=== PATIENT | female | born 1990 | race Two or more races ===

== ENCOUNTER → 2019-06-30 | Outpatient (CLI) | payer SELFPAY ==
--- NOTE | 2019-06-30 13:00 | RADIOLOGY REPORT (SQ) ---
EXAM DESCRIPTION: U/S [id number] TRNABD 1GES W/ODOP IMAGES COMPLETED DATE/TIME: 06/30/2019 11:26 am REASON FOR STUDY: ENCOUNTER FOR SUPRVSN OF NORMAL , FIRST TRIMESTER Z34.81 ENCOUNTER FOR S UPRVSN OF NORMAL , FIRST TRIM COMPARISON: None. TECHNIQUE: Transabdominal static and realtime grayscale images acquired of the pelvis. Additional se lected spectral and color Doppler images recorded. All images stored on PACs. bHCG: Unknown. CLINICAL DATES: Unknown. LIMITATIONS: None. FINDINGS: FETUS: Single Living intrauterine . ULTRASOUND EGA: 10 weeks 5 days. ULTRASOUND FAINA: 01/21/2020. CRL: 3.9 cm. FHR: 165 beats per minute. SURVEY: Too early to assess. AMNIOTIC FLUID: Too early to assess PLACENTA: Too early to assess. SUBCHORIONIC BLEED: Yes. SIZE OF BLEED: 1.8 x 1.3 x 1.3 cm. UTERUS: The uterus measures 11.1 x 7.9 x 7.2 cm. CERVICAL LENGTH: 2.2 cm. Closed. RIGHT ADNEXA: The right ovary measures 3 x 2.6 x 1.6 cm and on Doppler there is intact color flow wit hin the ovarian stroma. There is no adnexal mass. LEFT ADNEXA: The left ovary measures 3.1 x 2 x 2 cm and on Doppler there is intact color flow within the ovarian stroma. There is no adnexal mass. FREE FLUID: None. OTHER: No other finding. IMPRESSION: LIVE INTRAUTERINE . EGA 10 weeks 5 days based on ultrasound (LMP is unknown). SUBCHORIONIC HEMORRHAGE THAT MEASURES 1.8 X 1.3 X 1.3 CM. Trimester of : First trimester - 0 to 13 weeks. TECHNICAL DOCUMENTATION: JOB ID: [id number] 2010 [employer]- All Rights Reserved rev Reading location - IP/workstation name: [email or web address]
== END ==
LOC: RAD 10:50
PROVIDERS: ATTEND Midwife
DX: Z34.81 Encounter for supervision of other normal pregnancy, first trimester (principal); Z3A.10 10 weeks gestation of pregnancy
CPT/HCPCS: 76801

== ENCOUNTER → 2019-09-04 | Outpatient (CLI) | payer SELFPAY ==
--- NOTE | 2019-09-04 14:55 | RADIOLOGY REPORT (SQ) ---
EXAM DESCRIPTION: U/S OB 14+ TRNABD 1GES W/O DOP IMAGES COMPLETED DATE/TIME: 09/04/2019 2:32 pm REASON FOR STUDY: Z34.82 ENCOUNTER FOR SUPRVSN OF NORMAL , SECOND TRIMESTER Z34.82 ENCOUNT ER FOR SUPRVSN OF NORMAL , SECOND TRI COMPARISON: 06/30/2019 TECHNIQUE: Static and Dynamic grayscale imaging performed of gravid uterus using transabdominal appr oach. Additional selected color Doppler and spectral images recorded. All stored on PACS. LIMITATIONS: None. FINDINGS: FETUSES SEEN:1 EGA: 20 weeks 2 days Calculated using BPD,FL,HC,AC documented on images. No significant discrepancy with clinical dates. FAINA: 01/20/2020 EFW: 334+/- 49 grams PERCENTILE: Not calculated LVP: 4.4 x 4.6 cm PLACENTA: Posterior grade 1 PRESENTATION: Breech ANATOMY: HEART RATE: 155 beats per minute. FOUR CHAMBER HEART: Visualized. THREE VESSEL CORD: Yes. CORD INSERTION: Visualized. KIDNEYS AND BLADDER: Visualized. Appear normal. STOMACH: Visualized. Appears normal. SPINE: Normal as visualized. BRAIN AND LATERAL VENTRICLES: Visualized. Appear normal. OTHER: No other significant finding. MATERNAL ADNEXA: Maternal ovaries not visualized. CERVICAL LENGTH: 3.1 cm. Closed. OTHER: No other significant finding. IMPRESSION: LIVING INTRAUTERINE . ESTIMATED GESTATIONAL AGE 20 weeks 2 days NO VISUALIZED ANOMALIES. Trimester of : Second trimester - 13 weeks 1 day to 27 weeks 6 days. TECHNICAL DOCUMENTATION: JOB ID: [id number] 2010 [employer]- All Rights Reserved Reading location - IP/workstation name: [email or web address]
== END ==
LOC: RAD 13:52
PROVIDERS: ATTEND Nurse Practitioner Family
DX: Z34.82 Encounter for supervision of other normal pregnancy, second trimester (principal); Z3A.20 20 weeks gestation of pregnancy
CPT/HCPCS: 76805

== ENCOUNTER 2019-12-28 04:35 | Inpatient (IN) | payer SELFPAY ==
[2019-12-28] MEDS ORDERED: RINGERS SOLUTION,LACTATED 1,000 ML IV ONE (04:48)
[2019-12-28] MEDS ORDERED: RINGERS SOLUTION,LACTATED 1,000 ML IV PRN (04:48)
[2019-12-28] MEDS ORDERED: OXYTOCIN 10 UNIT/ML VIAL ONE (04:52)
[2019-12-28] MEDS ORDERED: LIDOCAINE 1% INJ-PF (10 MG/ML) 30 ML SDV ONE (04:52)
[2019-12-28] MEDS ORDERED: OXYTOCIN/0.9 % SODIUM CHLORIDE 30 UNIT/500 ML RTUINJ ONE (04:52)
[2019-12-28] MEDS ORDERED: PENICILLIN G-K 5 MILLION UNIT VIAL ONE (04:52)
[2019-12-28] MEDS ORDERED: MISOPROSTOL 0.2 MG TABLET ONE (04:52)
[2019-12-28] MEDS ORDERED: PENICILLIN G POTASSIUM 5,000,000 UNIT in DEXTROSE 5%-WATER 100 ML IV ONE (05:00)
[2019-12-28] MEDS ORDERED: HYDRALAZINE HCL INJ/PF 20 MG/1 ML SDV IV ONE (05:26)
[2019-12-28 05:28] LABS: ABSOLUTE EOSINOPHILS # (AUTO) 0.1 10^3/uL (0.0-0.6); ABSOLUTE LYMPHOCYTES (AUTO) 1.7 10^3/uL (0.5-4.7); ABSOLUTE MONOCYTES (AUTO) 0.5 10^3/uL (0.1-1.4); ABSOLUTE NEUT (AUTO) 10.9 10^3/uL (1.7-8.2); BASOPHILS % (AUTO) 0.1 % (0-2); EOSINOPHILS % (AUTO) 0.4 % (0-6); HEMATOCRIT 37.9 % (36.0-47.0); HEMOGLOBIN 12.8 g/dL (12.0-15.5); LYMPHOCYTES % (AUTO) 12.9 % (13-45); MEAN CORPUSCULAR HEMOGLOBIN 31.6 pg (27.0-33.4); MEAN CORPUSCULAR HGB CONC 33.7 g/dL (32.0-36.0); MEAN CORPUSCULAR VOLUME 94 fl (80-97); MONOCYTES % (AUTO) 4.1 % (3-13); PLATELET COUNT 233 10^3/uL (150-450); RED BLOOD COUNT 4.04 10^6/uL (3.72-5.28); RED CELL DISTRIBUTION WIDTH 13.2 % (11.5-14.0); SEGMENTED NEUTROPHILS % (AUTO) 82.5 % (42-78); TOTAL CELLS COUNTED % (AUTO) 100 %; WHITE BLOOD COUNT 13.2 10^3/uL (4.0-10.5)
--- NOTE | 2019-12-28 06:02 | Admission Physical ---
Datetime Report Generated by CPN: 12/28/2019 06:02 CURRENT ADMISSION Chief Complaint: Uterine Contractions Indication for Induction: Not Applicable Admit Impression : Term, Intrauterine Admit Plan: Admit to Unit ALLERGIES Medication Allergies: No Medication Allergies: No Known Allergies (12/28/2019) Latex: No Latex Allergies OBSTETRICAL HISTORY EDC: 01/21/2020 00:00 : 2 Para: 1 Term: 0 : 1 Livin Gestational Diabetes: No Rh Sensitization: No Incompetent Cervix: No JOHN: No Infertility: No ART Treatment: No Uterine Anomaly: No IUGR: No Hx Previous C/S: No Macrosomia: No Hx Loss/Stillborn: No PIH: No Hx : No Placenta Previa/Abruption: No Depression/PP Depression: No PTL/PROM: No Post Hemorrhage: No Obstetrical History Comments: G1- boy G2- current SEE RECORDS Alcohol: No Marijuana : No Cocaine: No Other Illicit Drugs: No Cigarettes: Never Smoker. 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 Surgery: No Heart Disease: No Hosp/Surgery: No Autoimmune Disorder: No Anesthetic Complications: No Kidney Disease: No Abnormal Pap Smear: No Neuro/Epilepsy: No Psychiatric Disorders: No Other Medical Diseases: No Hepatitis/Liver Disease: No Significant Family History: No Varicosities/Phlebitis: No Trauma/Violence : No Thyroid Dysfunction: No INFECTIOUS HISTORY Gonorrhea: No Genital Herpes: No Chlamydia: No Tuberculosis: No Syphilis: No Hepatitis: No HIV/AIDS Exposure: No Rash or Viral Illness: No HPV: No PHYSICAL EXAM General: Normal HEENT: Normal Neurologic: Normal Thyroid: Normal Heart: Normal Lungs: Normal Breast: Deferred Back: Normal Abdomen: Normal Genitourinary Exam: Normal Extremities: Normal DTRs: Normal Pelvic Type: Adequate Vital Signs: Reviewed VAGINAL EXAM Dilatation: 8 Effacement: 100 Station: 0 MEMBRANES Pooling: Positive Membranes: Ruptured FETUS A EGA: 36.4 Monitoring: External US FHR- Baseline: 120 Variability: Moderate 6-25bpm Decelerations: None FHR Category: Category I Presentation: Vertex Admit Comment: efw 7 lbs PLANS FOR LABOR AND DELIVERY Labor and Delivery: None Pain Management: Natural Feeding Preference: Breast Benefit of Breast Feed Discussed: Yes Circumcision: No INFORMED CONSENT Signature: with User ID: [email or web address]
[2019-12-28] MEDS ORDERED: MEASLES,MUMPS&RUBELLA VACC/PF 0.5 ML VIAL SUBCUT PRN (06:24)
[2019-12-28] MEDS ORDERED: NA PHOS,M-B/NA PHOS,DI-BA (ADULT) 133 ML ENEMA PR PRN (06:24)
[2019-12-28] MEDS ORDERED: PROMETHAZINE HCL INJ 25 MG/1 ML VIAL IV PRN (06:24)
[2019-12-28] MEDS ORDERED: ZOLPIDEM TARTRATE 5 MG TABLET PO PRN (06:24)
[2019-12-28] MEDS ORDERED: PROMETHAZINE HCL 25 MG TABLET PO PRN (06:24)
[2019-12-28] MEDS ORDERED: ACETAMINOPHEN 650 MG SUPP.RECT PR PRN (06:24)
[2019-12-28] MEDS ORDERED: ACETAMINOPHEN WITH CODEINE #3 TABLET PO PRN ×2 (06:24)
[2019-12-28] MEDS ORDERED: OXYTOCIN/0.9 % SODIUM CHLORIDE 30 UNIT/500 ML RTUINJ IV PRN (06:24)
[2019-12-28] MEDS ORDERED: DIBUCAINE 1% OINTMENT 28 GM TP PRN (06:24)
[2019-12-28] MEDS ORDERED: DIPH/PERTUSS(ACELL)/TETANUS VAC/PF 0.5 ML SYR (>=10YO) IM PRN (06:24)
[2019-12-28] MEDS ORDERED: PSEUDOEPHEDRINE HCL 30 MG TABLET PO PRN (06:24)
[2019-12-28] MEDS ORDERED: MAGNESIUM HYDROXIDE SUSP 30 ML UDCUP PO PRN (06:24)
[2019-12-28] MEDS ORDERED: GLYCERIN/WITCH HAZEL LEAF 1 EACH MED..WIPE TP PRN (06:24)
[2019-12-28] MEDS ORDERED: DIPHENHYDRAMINE HCL 25 MG CAPSULE PO PRN (06:24)
[2019-12-28] MEDS ORDERED: BENZOCAINE/MENTHOL AEROSOL SPRAY 56 ML TOP PRN (06:24)
[2019-12-28] MEDS ORDERED: PROMETHAZINE HCL 25 MG SUPP.RECT PR PRN (06:24)
--- NOTE | 2019-12-28 06:26 | Warning Signs in Babies ---
VOD Warning Signs Datetime Report Generated by [facility]: 12/28/2019 06:26 VOD#608 -Warning Signs in Babies: Needs to be viewed. (12/28/2019 05:14:Charleen Almaraz RN)
[2019-12-28] MEDS ORDERED: IBUPROFEN 800 MG TABLET ONE (06:36)
--- NOTE | 2019-12-28 07:21 | Delivery Summary ---
Del Sum A-C Datetime Report Generated by CPN: 12/28/2019 07:21 DELIVERY PERSONNEL DELIVERY PERSONNEL: [id number] Delivery Doctor:: Taye Briggs MD Labor and Delivery Nurse:: Charleen Almaraz RN Labor and Delivery Nurse:: Veronica Mcduffie RN Afterschool Babysitter/ONCOLOGY COORDINATOR: Aide Green, ST MATERNAL INFORMATION Delivery Anesthesia: None Medications After Delivery: Pitocin 30 Units in 500ml NS/D5W Estimated Blood Loss (ml): 250 Maternal Complications: None LABOR SUMMARY EDC: 01/21/2020 00:00 No. Babies in Womb: 1 Attempted: No Labor Anesthesia: None LABOR INFORMATION Reason for Induction: Not Applicable Onset of Labor: 12/28/2019 00:00 Complete Dilatation: 12/28/2019 06:00 Oxytocin: N/A Group B Beta Strep: unknown Antibiotics # of Doses: 1 Antibiotics Time of Last Dose: 12/28/2019 05:08 Name of Antibiotic Given: PCN Steroids Given: None Reason Steroids Not Administered: Not Applicable MEMBRANES Membranes Rupture Method: Artificial Rupture of Membranes: 12/28/2019 05:56 Length of Rupture (hr): 0.17 Amniotic Fluid Color: Clear Amniotic Fluid Amount: Moderate Amniotic Fluid Odor: Normal STAGES OF LABOR Stage 1 hr: 6 Stage 1 min: 0 Stage 2 hr: 0 Stage 2 min: 6 Stage 3 hr: 0 Stage 3 min: 6 Total Time in Labor hr: 6 Total Time in Labor min: 12 VAGINAL DELIVERY Episiotomy: None Laceration #1: Vaginal Laceration Extension #1: First Degree Laceration #2: Vaginal Laceration Extension #2: First Degree Laceration #3: None Laceration Extension #3: N/A Laceration Repair: Yes Laceration Repair Note: Bilateral labial lacerations repaired with 3-0 chromic suture. Sponge Count Correct: Yes Sharps Count Correct: Yes CSECTION DELIVERY Primary Indication: N/A Secondary Indication: N/A CSection Incidence: N/A Labor: N/A Elective: N/A CSection Incision: N/A BABY A INFORMATION Delivery Date/Time: 12/28/2019 06:06 Method of Delivery: Vaginal Nurse Controlled Delivery: No Born in Route : No : N/A Forceps: N/A Vacuum Extraction: N/A Shoulder Dystocia : No PRESENTATION/POSITION BABY A Presentation: Cephalic Cephalic Presentation: Vertex Vertex Position: Left Occipital Anterior Breech Presentation: N/A PLACENTA INFORMATION BABY A Placenta Delivery Time : 12/28/2019 06:12 Placenta Method of Delivery: Spontaneous Placenta Status: Delivered SCORES BABY A Heart Rate 1 min: >100 bpm Resp Effort 1 min: Good Cry Reflex Irritability 1 min: Cough or Sneeze or Pulls Away Muscle Tone 1 min: Active Motion Color 1 min: Blue/Pale Resuscitation Effort 1 min: Tactile Stimulation SCORE 1 MIN: 8 Heart Rate 5 min: >100 bpm Resp Effort 5 min: Good Cry Reflex Irritability 5 min: Cough or Sneeze or Pulls Away Muscle Tone 5 min: Active Motion Color 5 min: Body [place], Extremities Blue Resuscitation Effort 5 min: Tactile Stimulation SCORE 5 MIN: 9 INFORMATION BABY A Gestational Age at Delivery: 36.4 Gestational Status: Late - 34- 36.6 Weeks Infant Outcome : Liveborn Infant Condition : Stable Infant Sex: Male IDENTIFICATION BABY A Verification Date/Time: 12/28/2019 06:25 ID Band Number: [id number] Mother's Name Verified: Yes RN Verifying Infant: C. Georgeilin, RN D. Bellavance, RN WEIGHT/LENGTH BABY A Infant Birthweight (gm): 3021 Infant Weight (lb): 6 Infant Weight (oz): 11 Infant Length (in): 20.00 Infant Length (cm): 50.80 CORD INFORMATION BABY A No. Cord Vessels: 3 Nuchal Cord : N/A Cord Blood Taken: Yes-For Storage (Mom's Blood type +) Suction: None ASSESSMENT BABY A Complications: None Physical Findings at Delivery: Within Normal Limits Skin to Skin: Yes Transferred To: Remains with Mother BABY B INFORMATION : N/A SIGNATURES Signature: Electronically signed by Taye Briggs MD ([facility]) on 12/28/2019 at 06:21 with User ID: [email or web address]
--- NOTE | 2019-12-28 07:21 | Birth Certificate Data ---
Cert Data Datetime Report Generated by CPN: 12/28/2019 07:21 CERTIFICATE DATA Delivery Provider: Taye Briggs MD (12/28/2019 05:14:Veronica Mcduffie RN) 47a. Care: Yes (12/28/2019 05:14:Veronica Mcduffie RN) 47b. Date of First Visit: 07/01/2019 00:00 (12/28/2019 05:14:JOSE Masters) 47c. Date of Last Visit: 11/19/2019 00:00 (12/28/2019 05:14:JOSE Masters) 47d. Number of Visits: 8 (12/28/2019 05:14:JOSE Masters) 48a. Number of Prev Live Births: 1 (12/28/2019 05:14:Veronica Mcduffie RN) 48b. Now Livin (12/28/2019 05:14:Veronica Mcduffie RN) 48c. Live Births Now : 0 (12/28/2019 05:14:QS system process) 48e. Losses: 0 (12/28/2019 05:14:Veronica Mcduffie RN) RISK FACTORS IN THIS 49a. Diabetes: No (12/28/2019 05:14:Charleen Almaraz RN) 49b. Hypertension: No (12/28/2019 05:14:Charleen Almaraz RN) 49c. Previous Births: 1 (12/28/2019 05:14:Veronica Mcduffie RN) 49d. Stillborns: No (12/28/2019 05:14:Charleen Almaraz RN) 49d. IUGR: No (12/28/2019 05:14:Charleen Almaraz RN) 49e. Infertility Treatment: No (12/28/2019 05:14:Charleen Almaraz RN) Mother's Height 50b. Height Inches: 67 (12/28/2019 05:26:QS system process) Mother's Weight 51a. Pre- Weight (lbs): 213 (12/28/2019 05:14:JOSE Masters) 51b. Weight at Delivery (lbs): 220 (12/28/2019 05:26:QS system process) Infections Present/Treated 53a. Gonorrhea: No (12/28/2019 05:14:Charleen Almaraz RN) Results this Hospital Visit : Negative (12/28/2019 05:14:Veronica Mcduffie RN) 53b. Syphilis: No (12/28/2019 05:14:Charleen Almaraz RN) 53c. Chlamydia: No (12/28/2019 05:14:Charleen Almaraz RN) Results this Hospital Visit: Negative (12/28/2019 05:14:Veronica Mcduffie RN) 53d. Hepatitis B: No (12/28/2019 05:14:Charleen Almaraz RN) Results this Hospital Visit: Negative (12/28/2019 05:14:Veronica Mcduffie RN) 53e. Hepatitis C: Negative (12/28/2019 05:14:Veronica Mcduffie RN) 53h. Mother Tested for HBsAG: Yes (12/28/2019 05:14:Veronica Mcduffie RN) 53i. Date Tested: 07/01/2019 00:00 (12/28/2019 05:14:Veronica Mcduffie RN) 53j. Test Result: Negative (12/28/2019 05:14:Veronica Mcduffie RN) Cigarette Smoking Cigarette Smoking: Never Smoker. [id number] (12/28/2019 05:14:Veronica Mcduffie RN) 55a. 3 Months Before Preg - Ci (12/28/2019 05:14:Veronica Mcduffie RN) 55a. Packs: 0 (12/28/2019 05:14:Veronica Mcduffie RN) 55b. 1st Trimester of Preg- Ci (12/28/2019 05:14:Veronica Mcduffie RN) 55b. Packs: 0 (12/28/2019 05:14:Veronica Mcduffie RN) 55c. 2nd Trimester of Preg- Ci (12/28/2019 05:14:Veronica Mcduffie RN) 55c. Packs: 0 (12/28/2019 05:14:Veronica Mcduffie RN) 55d. 3rd Trimester of Preg- Ci (12/28/2019 05:14:Veronica Mcduffie RN) 55d. Packs: 0 (12/28/2019 05:14:Veronica Mcduffie RN) Onset of Labor 56a. PROM >12 Hrs: 0.17 (12/28/2019 05:14:QS system process) 56b. Precipitous Labor <3 Hrs: 6 (12/28/2019 05:14:QS system process) 56c. Prolonged Labor > 20 Hrs: 6 (12/28/2019 05:14:QS system process) 57a. Induction of Labor: N/A (12/28/2019 05:14:Veronica Mcduffie RN) 57c. Non-Vertex Presentation A: Vertex (12/28/2019 05:14:Veronica Mcduffie RN) 57d. Steroids - Lung Mat: None (12/28/2019 05:14:Veronica Mcduffie RN) 57d. Steroids - Lung Mat: Not Applicable (12/28/2019 05:14:Veronica Mcduffie RN) 57e. Antibiotics During Labor: 12/28/2019 05:08 (12/28/2019 05:14:Veronica Mcduffie RN) 57g. Moderate/Heavy Meconium: Clear (12/28/2019 05:56:Veronica Mcduffie RN) 57h. Intolerance of Labor: N/A (12/28/2019 05:14:Veronica Mcduffie RN) : N/A (12/28/2019 05:14:Veronica Mcduffie RN) 57i. Epidural/Spinal Anesthesia: None (12/28/2019 05:14:Veronica Mcduffie RN) Method of Delivery 58a. Forceps - Unsuccessful A: N/A (12/28/2019 05:14:Veornica Mcduffie RN) 58b. Vacuum - Unsuccessful A: N/A (12/28/2019 05:14:Veronica Mcduffie RN) 58c. Presentation at 58c. Presentation at - A : Vertex (12/28/2019 05:14:Veronica Mcduffie RN) 58c. Presentation at - A : N/A (12/28/2019 05:14:Veronica Mcduffie RN) 58c. Presentation at - A : Cephalic (12/28/2019 05:14:Veronica Mcduffie RN) Final Route and Method of Del 58d. Baby A Route/Delivery: Vaginal (12/28/2019 06:06:Charleen Almaraz RN) 58e. Trial of Labor Attempted: No (12/28/2019 05:14:Veronica Mcduffie RN) 58e. Trial of Labor Attempted A: N/A (12/28/2019 05:14:Veronica Mcduffie RN) 58e. Trial of Labor Attempted B: N/A (12/28/2019 05:14:Veronica Mcduffie RN) Maternal Morbidity 59b. 3rd or 4th Degree Lacs: Vaginal (12/28/2019 05:14:Taye Briggs MD ([facility])) Birthweight Baby A: 3021 (12/28/2019 05:14:Charleen Almaraz RN) 60a. Pounds : 6 (12/28/2019 05:14:QS system process) 60b. Ounces: 11 (12/28/2019 05:14:QS system process) 61. GA at Delivery Baby A: 36.4 (12/28/2019 05:14:Veronica Mcduffie RN) : Late - 34- 36.6 Weeks (12/28/2019 05:14:QS system process) 62a. 5 Minute Baby A: 9 (12/28/2019 05:14:QS system process)
[2019-12-28] MEDS: FAMOTIDINE 20 MG TABLET PO SCH ×2 (09:27→21:06)
[2019-12-28] MEDS: PRENATAL VITAMIN W DHA CAPSULE PO SCH (09:27)
[2019-12-28] MEDS: DOCUSATE SODIUM 100 MG CAPSULE PO SCH ×2 (09:27→17:42)
[2019-12-28] MEDS: SENNOSIDES/DOCUSATE 8.6-50 MG 1 EACH TABLET PO SCH (09:27)
[2019-12-28] MEDS: FERROUS SULFATE 325 MG TABLET PO SCH ×2 (09:27→17:42)
[2019-12-28] MEDS: IBUPROFEN 800 MG TABLET PO SCH ×2 (13:27→21:06)
[2019-12-28 16:29] LABS: URINE AMPHETAMINES SCREEN NEGATIVE; URINE BARBITURATES SCREEN NEGATIVE; URINE BENZODIAZEPINES SCREEN NEGATIVE; URINE COCAINE SCREEN NEGATIVE; URINE MARIJUANA (THC) SCREEN NEGATIVE; URINE METHADONE SCREEN NEGATIVE; URINE PHENCYCLIDINE SCREEN NEGATIVE
[2019-12-29] MEDS: IBUPROFEN 800 MG TABLET PO SCH ×3 (06:13→22:20)
[2019-12-29 07:39] LABS: HEMATOCRIT 35.1 % (36.0-47.0); HEMOGLOBIN 12.1 g/dL (12.0-15.5); MEAN CORPUSCULAR HEMOGLOBIN 32.2 pg (27.0-33.4); MEAN CORPUSCULAR HGB CONC 34.4 g/dL (32.0-36.0); MEAN CORPUSCULAR VOLUME 94 fl (80-97); PLATELET COUNT 204 10^3/uL (150-450); RED BLOOD COUNT 3.75 10^6/uL (3.72-5.28); RED CELL DISTRIBUTION WIDTH 13.2 % (11.5-14.0); WHITE BLOOD COUNT 10.4 10^3/uL (4.0-10.5)
--- NOTE | 2019-12-29 09:10 | PDOC PROGRESS REPORT ---
Subjective-OB Progress Note for:: 12/29/19 Subjective: Pt doing well, no concerns. She reports light bleeding, reg diet and voiding w/o difficulty. Martii used for interpretation. Physical Exam (OB) Vital Signs: Temp Pulse Resp BP Pulse Ox 98.3 F 85 16 119/85 100 12/29/19 07:36 12/29/19 07:36 12/29/19 07:36 12/29/19 07:36 12/29/19 07:36 Intake & Output 12/28/19 12/29/19 12/30/19 06:59 06:59 06:59 Intake Total 900 Balance 900 Weight 99.9 kg - Maternal Morbidity 59. Maternal Morbidity (serious complications experinced by the mother associated with labor and delivery: None of the above - Lochia Lochia Amount: Small 10-25 ml Lochia Color: Rubra/Red - Abdomen Description: Soft Hernia Present: No Fundal Description: Firm, Midline Fundal Height: u/u - u/2 Objective-Diagnostic Laboratory: 12/29/19 06:59 12/29/19 06:59 WBC 10.4 RBC 3.75 Hgb 12.1 Hct 35.1 L MCV 94 MCH 32.2 MCHC 34.4 RDW 13.2 Plt Count 204 Assessment and Plan(PN) - Assessment and Plan (1) labor with delivery Is this a current diagnosis for this admission?: Yes - Time Spent with Patient Time with patient: Less than 15 minutes Medications reviewed and adjusted accordingly: Yes - Disposition Anticipated Discharge Disposition: Home, Self Care Anticipated Discharge Timeframe: within 24 hours
[2019-12-29] MEDS: FERROUS SULFATE 325 MG TABLET PO SCH ×2 (09:30→17:11)
[2019-12-29] MEDS: SENNOSIDES/DOCUSATE 8.6-50 MG 1 EACH TABLET PO SCH (09:30)
[2019-12-29] MEDS: DOCUSATE SODIUM 100 MG CAPSULE PO SCH ×2 (09:30→17:11)
[2019-12-29] MEDS: FAMOTIDINE 20 MG TABLET PO SCH ×2 (09:30→22:20)
[2019-12-29] MEDS: PRENATAL VITAMIN W DHA CAPSULE PO SCH (09:30)
[2019-12-30] MEDS: IBUPROFEN 800 MG TABLET PO SCH ×2 (05:24→14:45)
[2019-12-30 08:10] VITALS: BP 103/60
[2019-12-30] MEDS: DOCUSATE SODIUM 100 MG CAPSULE PO SCH (10:33)
[2019-12-30] MEDS: FAMOTIDINE 20 MG TABLET PO SCH (10:33)
[2019-12-30] MEDS: SENNOSIDES/DOCUSATE 8.6-50 MG 1 EACH TABLET PO SCH (10:34)
[2019-12-30] MEDS: PRENATAL VITAMIN W DHA CAPSULE PO SCH (10:34)
[2019-12-30] MEDS: FERROUS SULFATE 325 MG TABLET PO SCH (10:34)
--- NOTE | 2019-12-30 12:21 | PDOC DISCHARGE SUMMARY ---
Impression - Admit/DC Date/PCP Admission Date/Primary Care Provider: 12/28/19 04:53 HAILEY FAY Discharge Date: 12/30/19 - Discharge Diagnosis (1) Obstetric labial laceration, delivered, current hospitalization Is this a current diagnosis for this admission?: Yes (2) Obstetric vaginal laceration Is this a current diagnosis for this admission?: Yes (3) labor with delivery Is this a current diagnosis for this admission?: Yes - Assessment Summary: 29yo G2 now P1 s/p ppd 2 stable and ready for discharge. Denies any concerns, understands warning s/s.Will call health department to schedule pp appt. - Additional Information Resuscitation Status: Full Code Discharge Diet: Regular Discharge Activity: Activity As Tolerated, Balance Activity w/Rest, Pelvic Rest, No tub bath, Walk Frequently Referrals: USHA JONES ARNP [Primary Care Provider] - Prescriptions: Ibuprofen [Motrin 800 mg Tablet] 800 mg PO Q8HP PRN #20 tablet PRN Reason: For Pain Scale 1-3 Home Medications: 95/Iron Fum/Folic/Dha [ + Dha Combo Pack] 1 tab PO DAILY 12/28/19 Ibuprofen [Motrin 800 mg Tablet] 800 mg PO Q8HP PRN #20 tablet 12/30/19 Hospital Course 59. Maternal Morbidity (serious complications experinced by the mother associated with labor and delivery: None of the above Results Laboratory Results: WBC 10.4 10^3/uL (4.0-10.5) 12/29/19 06:59 RBC 3.75 10^6/uL (3.72-5.28) 12/29/19 06:59 Hgb 12.1 g/dL (12.0-15.5) 12/29/19 06:59 Hct 35.1 % (36.0-47.0) L 12/29/19 06:59 MCV 94 fl (80-97) 12/29/19 06:59 MCH 32.2 pg (27.0-33.4) 12/29/19 06:59 MCHC 34.4 g/dL (32.0-36.0) 12/29/19 06:59 RDW 13.2 % (11.5-14.0) 12/29/19 06:59 Plt Count 204 10^3/uL (150-450) 12/29/19 06:59 Lymph % (Auto) 12.9 % (13-45) L 12/28/19 05:19 [place] % (Auto) 4.1 % (3-13) 12/28/19 05:19 Eos % (Auto) 0.4 % (0-6) 12/28/19 05:19 Baso % (Auto) 0.1 % (0-2) 12/28/19 05:19 Absolute Neuts (auto) 10.9 10^3/uL (1.7-8.2) H 12/28/19 05:19 Absolute Lymphs (auto) 1.7 10^3/uL (0.5-4.7) 12/28/19 05:19 Absolute Monos (auto) 0.5 10^3/uL (0.1-1.4) 12/28/19 05:19 Absolute Eos (auto) 0.1 10^3/uL (0.0-0.6) 12/28/19 05:19 Absolute Basos (auto) 0.0 10^3/uL (0.0-0.2) 12/28/19 05:19 Seg Neutrophils % 82.5 % (42-78) H 12/28/19 05:19 Urine Opiates Screen NEGATIVE 12/28/19 15:42 Urine Methadone Screen NEGATIVE 12/28/19 15:42 Ur Barbiturates Screen NEGATIVE 12/28/19 15:42 Ur Phencyclidine Scrn NEGATIVE 12/28/19 15:42 Ur Amphetamines Screen NEGATIVE 12/28/19 15:42 U Benzodiazepines Scrn NEGATIVE 12/28/19 15:42 Urine Cocaine Screen NEGATIVE 12/28/19 15:42 U Marijuana (THC) Screen NEGATIVE 12/28/19 15:42 RPR NONREACTIVE (NONREACTIVE) 12/28/19 05:19 Blood Type A POSITIVE 12/28/19 05:19 Antibody Screen NEGATIVE 12/28/19 05:19
== END 2019-12-30 19:30 | disposition home or self-care (01) | DRG 807 ==
LOC: LC 04:35 → LR 04:53 → 2S 08:25
PROVIDERS: ADMIT Obstetrics & Gynecology; ATTEND Obstetrics & Gynecology
PROC: 10E0XZZ Delivery of Products of Conception, External Approach (ICD-10-PCS; principal; 2019-12-28)
PROC: 0HQ9XZZ Repair Perineum Skin, External Approach (ICD-10-PCS; 2019-12-28)
PROC: 3E0234Z Introduction of Serum, Toxoid and Vaccine into Muscle, Percutaneous Approach (ICD-10-PCS; 2019-12-30)
DX: O60.14X0 Preterm labor third trimester with preterm delivery third trimester, not applicable or unspecified (principal); Z37.0 Single live birth; O70.0 First degree perineal laceration during delivery; Z3A.36 36 weeks gestation of pregnancy; Z23 Encounter for immunization
CPT/HCPCS: 36415; 80307; 85025; 85027; 86592; 86850; 86900; 86901; 90707; J2540; J2590; J3490